=== PATIENT | male | born 2000 | race Caucasian/White ===

== ENCOUNTER 2022-01-08 16:33 | Inpatient (IN) | payer MEDICAID, SELFPAY ==
[2022-01-08 16:39] VITALS: BP 127/82; PULSE 93; RESP 18; TEMP 37; O2SAT 98; BMI 19.2
--- NOTE | 2022-01-08 16:45 | W.ED.GENADLT ---
HPI - General Adult General: Chief complaint: Psychiatric Symptoms Stated complaint: Suicidal Ideations Time Seen by Provider: 01/08/22 16:42 History of Present Illness: HPI: [21]yo patient w/ hx of depression BIBA for SI with plan. She was played through himself and then was plan to jump from a building. On arrival, the patient is AAOx3 and cooperative with my evaluation. No focal complaints of chest pain, shortness of breath, palpitations, N/V, focal GI/ complaints. Denies HI. No complaints of hallucinations. Onset: acute Duration: ongoing Location: home Severity: severe Associated symptoms: Deny chest pain, dyspnea, nausea, rash, palpitations or vomiting Review of Systems Const: Denies: fever(s) or chills Eyes: Denies: change in vision ENMT: Denies: mouth pain Card: Denies: chest pain or palpitations Resp: Denies: dyspnea or non-productive cough GI: Denies: abdominal pain, nausea, vomiting or diarrhea : Denies: dysuria Musc: Denies: extremity pain Skin/Breast: Denies: rash or new lesions Neuro: Denies: weakness in extremities Psych: Reports: depression Deni/Lymph: Denies: easy bruising PFSH ED PFSH: Medical History (Updated 01/08/22 @ 16:46 by Fransisco Topete MD) Depression as late effect of cerebrovascular accident (CVA) Family History (Updated 01/08/22 @ 16:46 by Fransisco Topete MD) Denies family history of Bleeding disorder Social History (Updated 01/08/22 @ 16:46 by Fransisco Topete MD) Smoking and tobacco status: never smoked Alcohol intake: unknown Substance/Drug Use: unknown Physical Exam Const: COMMON NORMALS: alert HENMT: COMMON NORMALS: atraumatic HEAD & SCALP: atraumatic MOUTH: moist mucous membranes not abnormal Eye: COMMON NORMALS: EOMs intact bilaterally and conjunctivae normal CONJUNCTIVA: Yes conjunctivae normal Neck/C-Spine: COMMON NORMALS: full ROM and supple Resp: COMMON NORMALS: normal respiratory effort and clear to auscultation bilaterally AUSCULTATION: clear to auscultation bilaterally Cardio: COMMON NORMALS: regular rate RATE: regular rate GI: COMMON NORMALS: Soft to palpation and non-tender PALPATION: Yes Soft to palpation Extremity: COMMON NORMALS: full ROM Neuro: SENSORIUM/ORIENTATION: Yes alert MOTOR EXAM: No Abnormal motor strength present and Other motor observations present (no focal motor deficits) Psych: COMMON NORMALS: speech normal SPEECH: Yes normal speech MOOD & AFFECT: Yes depressed mood Course Vital Signs: Vital signs: Vital Signs Temperature 98.6 F 01/08/22 16:39 Pulse Rate 93 01/08/22 16:39 Respiratory Rate 18 01/08/22 16:39 Blood Pressure 127/82 01/08/22 16:39 Pulse Oximetry 98 01/08/22 16:39 MDM - General Adult Medical Decision Making [21]yo patient w/ hx of depression presenting for depression, SI with plan. HDS, exam within normal limit Thoughts are linear and organized, and the patient has no AH/VH, or HI. Clinically the patient displays no overt toxidrome; they are well appearing, with low suspicion for toxic ingestion given history and exam. Symptoms unlikely 2/2 anemia, hypothyroidism, infection, or ICH. Workup: CBC, CMP, Lipase, salicylate/tylenol, UDS Lab findings: wnl [5:40pm] On reassessment, labs and workup wnl. Patient is hemodynamically stable with no acute medical complaints. Case discussed with psychiatric provider Dr. 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
[2022-01-08 16:57] LABS: Basophils % 0.6 %; Eosinophils # 0.1 10^3/uL (0.0-0.8); Eosinophils % 1.6 %; Hematocrit 45.7 % (42.0-52.0); Hemoglobin 15.5 g/dL (11.7-16.6); Lymphocytes # 1.4 10^3/uL (1.5-6.5); Lymphocytes % 22.1 %; Mean Corpuscular HGB Conc 33.9 g/dL (30.0-36.0); Mean Corpuscular Hemoglobin 29.6 pg (28.0-34.0); Mean Corpuscular Volume 87.2 fl (80-94); Mean Platelet Volume 8.4 fL (7.4-10.4); Monocytes # 0.5 10^3/uL (0.2-0.9); Monocytes % 7.3 %; Neutrophils # 4.26 10^3/uL (1.8-8.0); Neutrophils % 67.9 %; Nucleated Red Blood Cells % 0 %; Platelet Count 347 10^3/cmm (130-400); Red Blood Count 5.24 10^6/uL (4.1-5.3); Red Cell Distribution Width 12.5 % (12.1-15.1); White Blood Count 6.3 10^3/uL (4.5-13.0)
[2022-01-08 17:14] LABS: Alanine Aminotransferase 17 U/L (0-41); Albumin Level 5.3 g/dL (3.5-5.2); Alkaline Phosphatase 95 IU/L (40-130); Anion Gap 16.8 (5-19); Aspartate Amino Transferase 22 U/L (0-40); Blood Urea Nitrogen 11 mg/dL (6-20); Calcium 9.8 mg/dL (8.5-10.5); Carbon Dioxide 25 mmol/L (22-29); Chloride 100 mmol/L (98-107); Globulin 2.8 g/dL (1.3-4.6); Glomerular Filtration Rate 123.2 mL/min (90-130); Glucose 94 mg/dL (65-115); Lipase 26 U/L (13-60); Osmolality Calculated 285 mOsm/kg (285-295); Potassium 3.8 mmol/L (3.5-5.1); Sodium 138 mmol/L (136-145); Total Bilirubin 0.3 mg/dL (0.15-1.2); Total Protein 8.1 g/dL (6.6-8.7)
[2022-01-08 17:15] LABS: Acetaminophen < 5.0 ug/mL (10-30)
[2022-01-08 17:47] LABS: Amphetamines Screen Urine Negative (Negative); Barbiturates Screen Urine Negative (Negative); Benzodiazepines Screen Urine Negative (Negative); Cocaine Screen Urine Negative (Negative); Opiate Screen Urine Negative (Negative); PCP Screen Urine Negative (Negative); THC Screen Urine Positive (Negative)
[2022-01-08 18:52] VITALS: RESP 14
[2022-01-08 19:41] VITALS: BP 127/81; PULSE 76; RESP 18; TEMP 36.8; O2SAT 98
--- NOTE | 2022-01-08 20:01 | PC.ADMIT ---
[address] Admission Note:[21]yo patient w/ hx of depression BIBA for SI with plan. She was played through himself and then was plan to jump from a building. On arrival, the patient is AAOx3 and cooperative with my evaluation. No focal complaints of chest pain, shortness of breath, palpitations, N/V, focal GI/ complaints. Denies HI. No complaints of hallucinations. The patient,Gelacio Matamoros,21 y/o, was given written information regarding hospital policies, unit procedures and contact persons. Patient's smoking status: never smoked. Vital Signs - 8 hr 01/08/22 16:39 01/08/22 18:52 Temperature 98.6 F Pulse Rate 93 Respiratory Rate 18 14 Blood Pressure 127/82 Pulse Oximetry 98
[2022-01-08] MEDS: trazodone 50 mg Tablet PO (20:44)
[2022-01-09 06:00] VITALS: BP 105/71; PULSE 80; RESP 18; TEMP 36.4; O2SAT 99
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
[2022-01-09] MEDS: escitalopram 10 mg Tablet 20 MG PO (10:35)
[2022-01-09 14:00] VITALS: BP 113/70; PULSE 66; RESP 16; TEMP 36.4; O2SAT 99
[2022-01-09 20:18] VITALS: BP 94/60; PULSE 58; RESP 16; TEMP 36.9; O2SAT 96
[2022-01-09] MEDS: trazodone 50 mg Tablet PO (20:32)
[2022-01-10 06:00] VITALS: BP 92/55; PULSE 92; RESP 15; TEMP 36.2; O2SAT 98
[2022-01-10] MEDS: escitalopram 10 mg Tablet 20 MG PO (09:09)
[2022-01-10] MEDS: fluoxetine 10 mg Capsule PO (11:09)
[2022-01-10 14:00] VITALS: BP 111/68; PULSE 67; RESP 18; TEMP 37.1; O2SAT 99
--- NOTE | 2022-01-10 18:50 | P.NPUPN_ITS ---
Subjective NPU Subjective: Interval history: Patient presents today reporting that he is feeling a bit better. His parents visited and they were able to talk about his situation. He is agreeable to the initiation of the Prozac and 1 week of Lexapro prior to discontinuing it after discussion of the risks, benefits and alternatives he understood agreed proceed as is documented in this note. He was very much hoping to discharge sooner rather than later. He agreed that we could collaborate with his family and consider whether a discharge tomorrow would be safe. Mental Status Exam MSE Comments: This is a slender, young, white male, in hospital scrubs, with limited grooming, and eye contact. No abnormal movements except for mild psychomotor retardation. Cooperative with exam in mild distress. Speech was decreased rate and volume. Mood described as maybe a little bit better, affect subdued. Thought process, organized. Thought content: patient denied suicidal or homicidal ideation. There were no delusions noted but he does report paranoia being a problem. He denied any auditory or visual hallucinations. Attention and concentration were intact, and memory appeared intact but were not formally tested. He is alert and oriented times three. Insight and judgment are limited, impulse control limited. Vitals/I&O/Wt Last Vital Signs Temp 97.6 F 01/10/22 20:08 Pulse 77 01/10/22 20:08 Resp 17 01/10/22 20:08 BP 110/69 01/10/22 20:08 Pulse Ox 98 01/10/22 20:08 Weight last 48 hrs Weight 66.678 kg Data NPU : 01/08/22 16:53 01/08/22 16:53 A&P Assessment and plan (1) PTSD (post-traumatic stress disorder): Status: Acute (2) Major depressive disorder: Status: Acute (3) Suicidal ideation: Status: Acute Plan This is a 21-year-old, white male, with a history of post-traumatic stress disorder, major depressive disorder, recurrent, and anxiety, who presents with suicidal thoughts which he feels there was a decompensation for him when his medication was increased, but he is unsure what the medication was. RECOMMENDATION AND PLAN: 1. Continue current medication except decreased Lexapro to 10 mg daily for 1 week and then discontinue. Started Prozac 20 mg p.o. every morning. 2. Encourage individual, group, and milieu therapy. 3. Continue q-15 minute checks for safety. 4. Encourage sober living treatment after discharge, at the highest level of care, to which he is willing to commit. Involuntary Hold Information 96 Hour Hold: 96 Hour Involuntary Admission: No Attestations NPU Medical Necessity Statement*: Inpatient hospitalization is medically necessary and the clinically appropriate intervention, at this time. We will monitor medications and make changes as indicated. Likely length of stay is 1-3 days. 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
[2022-01-10] MEDS: trazodone 50 mg Tablet PO (20:02)
[2022-01-10 20:08] VITALS: BP 110/69; PULSE 77; RESP 17; TEMP 36.4; O2SAT 98
[2022-01-11 06:00] VITALS: BP 92/61; PULSE 85; RESP 18; TEMP 36.7; O2SAT 97
[2022-01-11] MEDS: fluoxetine 20 mg Capsule PO (08:13)
[2022-01-11] MEDS: escitalopram 10 mg Tablet PO (08:13)
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
[2022-01-11 13:51] VITALS: BP 92/61; PULSE 85; RESP 18; TEMP 36.7; O2SAT 97
== END 2022-01-11 13:57 | disposition home or self-care (01) | DRG 885 ==
LOC: ER 16:51 → NP 01-09 07:14
PROVIDERS: Admitting Provider Psychiatry & Neurology Psychiatry; Emergency Provider Emergency Medicine; Family Provider Pediatrics Adolescent Medicine; PCP Pediatrics Adolescent Medicine; Visit Provider Psychiatry & Neurology Psychiatry
DX: F33.9 Major depressive disorder, recurrent, unspecified (principal); R45.851 Suicidal ideations; F43.10 Post-traumatic stress disorder, unspecified; F41.9 Anxiety disorder, unspecified; Z81.8 Family history of other mental and behavioral disorders; Z81.4 Family history of other substance abuse and dependence; Z62.898 Other specified problems related to upbringing
CPT/HCPCS: 80053; 80306; 80307; 83690; 85025; 97150; 97165; 99285

== ENCOUNTER → 2022-01-31 08:48 | Outpatient (BNVA) | payer MEDICAID, SELFPAY | PROVIDERS: Family Provider Pediatrics Adolescent Medicine; PCP Pediatrics Adolescent Medicine; Visit Provider Nurse Practitioner | DX: F32.9 Major depressive disorder, single episode, unspecified (principal); F12.20 Cannabis dependence, uncomplicated; Z72.0 Tobacco use | CPT/HCPCS: 90792 ==

== ENCOUNTER → 2022-02-28 11:06 | Outpatient (BNVA) | payer OTHER, SELFPAY | PROVIDERS: Family Provider Pediatrics Adolescent Medicine; PCP Pediatrics Adolescent Medicine; Visit Provider Nurse Practitioner | DX: F32.9 Major depressive disorder, single episode, unspecified (principal); F12.20 Cannabis dependence, uncomplicated | CPT/HCPCS: 99214 ==